=== PATIENT | male | born 1980 | race Caucasian/White ===

== ENCOUNTER 2021-05-17 18:32 | Emergency (ER) | payer BC, SELFPAY ==
[2021-05-17 18:33] VITALS: BP 150/101; PULSE 98; RESP 17; TEMP 36.6; O2SAT 97; BMI 52.1
--- NOTE | 2021-05-17 21:06 | EX.ED.DYSGE1 ---
HPI History of Present Illness Chief Complaint: General Illness Informant: patient Narrative Narrative: 40-year-old male presenting to the emergency department shortness of breath on day 9 of COVID-19. Patient states that the shortness of breath and cough is really only been over the last couple days. The patient notes no significant sputum production but occasional blood streaks with coughing fits. Not Covid vaccinated PFSH PFSH Medical History Psoriasis Home Medications dexamethasone 6 mg PO DAILY #6 tab 05/17/21 [Rx Last Taken Unknown] ondansetron 4 mg PO Q6H PRN PRN #15 tab 05/17/21 [Rx Last Taken Unknown] Allergy/AdvReac Type Severity Reaction Status Date / Time Penicillins Allergy PT UNSURE Verified 05/17/21 18:33 OF REACTION Social History (Updated 05/17/21 @ 22:[address] Ronn North DO) Smoking Status: Current every day smoker tobacco type: cigarettes and smokeless tobacco substance use type: does not use ROS ROS ED Constitutional Constitutional ED: Reports chills and fever(s); Denies weight loss Eyes Eyes: Denies change in vision or diplopia ENT ENT ED: Reports rhinorrhea; Denies ear pain or sore throat Cardiovascular Cardiovascular: Denies chest pain, orthopnea, palpitations or racing heartbeat Respiratory/Chest Respiratory/Chest: Reports cough, dyspnea and dyspnea on exertion; Denies orthopnea Gastrointestinal Gastrointestinal: Reports diarrhea and nausea; Denies abdominal pain or vomiting Genitourinary Genitourinary ED: Denies dysuria, hematuria or urinary frequency Musculoskeletal Musculoskeletal: Reports myalgias; Denies arthralgias Integumentary Denies abscess or rash Neurologic Neurologic: Reports headache(s); Denies weakness Psychiatric Psychiatric: Denies anxiety, depression, suicidal ideation or suicidal thoughts Endocrine Endocrinology: Denies polydipsia, polyphagia or polyuria Allergic/Immunologic Allergic/Immunologic ED: Denies mouth swelling, tongue swelling or urticaria EXAM Physical Exam Const Vital Signs: 05/17/21 18:33 05/17/21 21:38 05/17/21 21:39 Temperature 98 F 98 F Temperature Source Temporal Temporal Pulse Rate 98 103 H Respiratory Rate 17 30 H Respiratory Effort Short of Breath Blood Pressure 150/101 H 145/88 H Blood Pressure Mean 117 107 Pulse Ox 97 97 Oxygen Delivery Method Room Air Room Air Positive well nourished and well developed General Appearance ED: well developed HEENT Reports normocephalic, head/scalp atraumatic and moist mucous membranes Eyes PERRL and EOMs intact bilaterally Neck no lymphadenopathy, supple and no JVD Resp normal respiratory effort and clear to auscultation bilaterally Cardio regular rate, regular rhythm and no murmurs GI normal to inspection, nondistended, normoactive bowel sounds and non-tender Palpation: soft Back/Spine no CVA tenderness and normal ROM Extremity normal to inspection General Extremety ED: Negative for edema General Extremity: Negative for edema Neuro oriented x3 and CN's II-XII intact bilaterally Sensorium / Orientation: alert Motor Exam: strength 5/5 throughout Psych mental status grossly normal Mood & Affect: Negative for depressed or tearful Skin no rashes or lesions noted and no wounds MDM MDM MDM Narrative Medical decision making narrative: White count 5.3 platelet count is 160. Interpretation of the chest x-ray is multifocal areas of inflammation consistent with COVID-19 diagnosis. Patient received Toradol and Zofran as well as a dose of dexamethasone. I will prescribe dexamethasone and Zofran as well. Patient to return if worsening or concerns Lab Data Attestation: I reviewed the patient's lab results. Labs: Laboratory Results - last 24 hr 05/17/21 05/17/21 21:30 21:30 WBC 5.3 RBC 5.65 Hgb 16.9 H Hct 49.3 MCV 87.3 MCH 29.9 MCHC 34.3 RDW Std Deviation 39.2 RDW Coeff of Yusuf 12.3 Plt Count 160 MPV 10.5 Immature Gran % (Auto) 0.600 Neut % (Auto) 66.4 Lymph % (Auto) 27.1 [place] % (Auto) 5.3 Eos % (Auto) 0.2 Baso % (Auto) 0.4 Absolute Neuts (auto) 3.5 Absolute Lymphs (auto) 1.43 Nucleated RBC % 0 Sodium 134 L Potassium 5.0 Chloride 101 Carbon Dioxide 26.0 Anion Gap 7 BUN 13 Creatinine 0.96 Estim Creat Clear Calc 79.78 Est GFR (MDRD) Af Amer 112 Est GFR (MDRD) Non-Af 93 BUN/Creatinine Ratio 13.6 Glucose 91 Calcium 8.8 Total Bilirubin 0.60 AST 56 H ALT 53 Alkaline Phosphatase 107 Total Protein 7.9 Albumin 3.4 Globulin 4.5 H Albumin/Globulin Ratio 0.8 L Discharge Plan Triage Chief Complaint: General Illness ED Provider: Ronn North Dx/Rx/DC Orders Clinical Impression: COVID-19, Acute dyspnea Instructions: Coronavirus Disease 2019 (COVID-19): Caring for Yourself or Others Prescriptions: New dexamethasone 6 MG tablet 6 mg PO DAILY Qty: 6 RF: 0 ondansetron [ondansetron] 4 MG tablet 4 mg PO Q6H PRN PRN (Reason: Nausea) Qty: 15 RF: 0 Primary Care Provider: Zaire Rubalcava Referrals: Zaire Rubalcava MD [Primary Care Provider] - As Needed Disposition Disposition: Home, Self Care
[2021-05-17] MEDS: Ketorolac 30 MG/ML Syringe IV (21:37)
[2021-05-17] MEDS: Ondansetron 4 MG/2 ML Vial IV (21:37)
[2021-05-17] MEDS: dexAMETHasone 4 MG Tablet 6 MG PO (21:37)
[2021-05-17 21:38] VITALS: BP 145/88; PULSE 103; RESP 30; TEMP 36.6; O2SAT 97; O2SAT 98
--- NOTE | 2021-05-17 21:39 | RAD_ITS ---
STUDY: X-RAY CHEST REASON FOR EXAM: Male, 40 years old. covid 19 TECHNIQUE: Frontal view COMPARISON: None. FINDINGS: The lungs are expanded. Patchy infiltrates in the left lung are noted. Normal size heart. Normal mediastinum and gisele. Normal visualized pulmonary arteries. Normal visualized aortic arch and descending thoracic aorta. Normal visualized thoracic spine. Normal visualized ribs, clavicles, and shoulders. There is no demonstrated abnormality of the visualized soft tissue structures of the upper abdomen. RAD/Chest 1 View (Portable) IMPRESSION: Patchy left pulmonary infiltrates. Electronically Signed: Julián Nugent DO at 23:02 EST Tel [phone], Service support ,
[2021-05-17 21:42] LABS: Absolute Lymphocyte Count 1.43 X10^3/uL (0.83-4.51); Absolute Neutrophil Count 3.5 X10^3/uL (2.0-7.7); Basophil# 0.02 X10^3/uL; Basophil% 0.4 % (0-1); Eosinophil# 0.01 X10^3/uL; Eosinophils% 0.2 % (0-5); Hematocrit 49.3 % (40-54); Hemoglobin 16.9 g/dL (13.0-16.5); Lymphocyte # 1.43 X10^3/ul (0.83-4.51); Lymphocyte % 27.1 % (19-41); Mean Corp Hgb Conc 34.3 g/dL (32-36); Mean Corpuscular Hgb 29.9 pg (27.0-32.0); Mean Corpuscular Volume 87.3 fL (80-94); Mean Platelet Vol. 10.5 fl (6.2-12.0); Monocyte# 0.28 X10^3/uL; Monocyte% 5.3 % (0-10); NRBC Flagged by Analyzer 0 % (0-5); Neutrophil # 3.51 X10^3/uL (2.7-7.7); Neutrophil % 66.4 % (47-70); Platelet Count 160 K/mm3 (150-450); RBC Distribution Width CV 12.3 % (11.6-14.6); RBC Distribution Width SD 39.2 fl (35.1-43.9); Red Blood Count 5.65 M/mm3 (4.6-6.2); White Blood Count 5.3 K/mm3 (4.4-11.0)
[2021-05-17 22:16] LABS: ALB/GLOB Ratio 0.8 RATIO (0.9-2.4); AST(SGOT) 56 U/L (15-37); Alanine Aminotransfer ALT/SGPT 53 U/L (16-61); Albumin, Serum 3.4 g/dL (3.2-5.0); Alkaline Phosphatase 107 U/L (45-117); Anion Gap 7 (5-15); BUN 13 mg/dL (7-18); BUN/Creat Ratio 13.6 RATIO (10-20); Calcium,Total 8.8 mg/dL (8.5-10.1); Chloride 101 mmol/L (98-107); Creatinine, Serum 0.96 mg/dL (0.70-1.30); EST Glomerular Filtration Rate 93 mL/min (>60); Est Glom Filt Rate - Afr Amer 112 mL/min (>60); Estimated Creatinine Clearance 79.78 ml/min; Globulin 4.5 g/dL (2.2-4.2); Glucose 91 mg/dL (74-106); Protein, Total 7.9 g/dL (6.4-8.2); Sodium Level 134 mmol/L (136-145)
[2021-05-17] MEDS: INHALER, ASSIST DEVICES 1 EACH SPACER INHALATION (22:38)
== END 2021-05-17 22:38 | disposition home or self-care (01) ==
PROVIDERS: Emergency Provider Emergency Medicine; PCP Family Medicine
DX: U07.1 COVID-19 (principal); L40.9 Psoriasis, unspecified; F17.210 Nicotine dependence, cigarettes, uncomplicated
CPT/HCPCS: 71045; 80053; 85025; 94640; 96374; 96375; 99283; A4216; J2405

== ENCOUNTER 2022-07-31 13:41 | Emergency (ER) | payer BC, SELFPAY ==
[2022-07-31 13:41] VITALS: BP 158/107; PULSE 95; RESP 18; TEMP 36.2; O2SAT 98; BMI 50.8
--- NOTE | 2022-07-31 14:01 | EDS_ITS ---
HPI <WALESKA Mauro - Last Filed: 07/31/22 15:39> History of Present Illness Chief Complaint: Laceration Narrative Narrative: 41-year-old male was chopping wood when a fist-sized piece of wood flew up and struck his nose. He has a laceration and bleeding is controlled. He went to urgent care but they sent him here for x-rays to rule out an underlying fracture. His tetanus is up-to-date. He has no headache, visual changes, nausea or vomiting. No blood thinners. PFSH <WALESKA Mauro - Last Filed: 07/31/22 15:39> [facility] Medical History Psoriasis Home Medications dexamethasone 6 mg tablet 6 mg PO DAILY #6 tabs 05/17/21 [Rx Last Taken Unknown] ondansetron 4 mg disintegrating tablet 4 mg PO Q6H PRN PRN Nausea #15 tabs 05/17/21 [Rx Last Taken Unknown] clindamycin HCl 150 mg capsule 450 mg PO TID 5 days #45 CAPSULES 07/31/22 [Rx Last Taken Unknown] hydrocodone-acetaminophen 5-325mg 5mg-325mg 1 tab PO Q6H PRN PRN Pain 3 days #10 TABLETS 07/31/22 [Rx Last Taken Unknown] Allergy/AdvReac Type Severity Reaction Status Date / Time Penicillins Allergy PT UNSURE Verified 05/17/21 18:33 OF REACTION Social History (Updated 05/17/21 @ 22:[address] Ronn Norht DO) Smoking Status: Current every day smoker tobacco type: cigarettes and smokeless tobacco substance use type: does not use ROS <WALESKA Mauro - Last Filed: 07/31/22 15:39> ROS ED ROS Narrative Constitutional: Negative for fever, chills, malaise. Eyes: Negative for visual change. CVS: Negative for palpitations, chest pain. Respiratory: Negative for shortness of breath. GI: Negative for nausea, vomiting. Neuro: Negative for headache, motor/sensory dysfunction. Skin: Positive for laceration. Heme: Negative for easy bruising, bleeding, lymphadenopathy. EXAM <WALESKA Mauro - Last Filed: 07/31/22 15:39> Physical Exam Narrative Exam Narrative: CONST: Patient sitting in no acute distress. EYES: Normal inspection. PERRLA, EOMI. ENT: 3 cm jagged linear laceration extending horizontally across the mid bridge of his nose with surrounding soft tissue swelling. No nasal septal hematoma, no raccoon eyes or tariq sign, no hemotympanum or CSF otorrhea or rhinorrhea. NECK: Normal inspection. RESP: No respiratory distress, CTAB. CVS: Regular rate and rhythm, no murmur, no gallop. SKIN: 3 cm nasal bridge laceration. EXTREMITIES: Normal appearance, no pedal edema. NEURO: Oriented x4. PSYCH: Normal affect. Const Vital Signs: 07/31/22 13:41 Temperature 97.2 F L Temperature Source Temporal Pulse Rate 95 Respiratory Rate 18 Blood Pressure 158/107 H Blood Pressure Mean 124 Pulse Ox 98 Oxygen Delivery Method Room Air <Dr. Rodrick Mcginnis DO - Last Filed: 07/31/22 16:39> Physical Exam Const Vital Signs: 07/31/22 13:41 Temperature 97.2 F L Temperature Source Temporal Pulse Rate 95 Respiratory Rate 18 Blood Pressure 158/107 H Blood Pressure Mean 124 Pulse Ox 98 Oxygen Delivery Method Room Air MDM <WALESKA Mauro - Last Filed: 07/31/22 15:39> [facility] Narrative Medical decision making narrative: Patient had blunt trauma to his nose from a piece of wood and presents with a laceration. There is a 3 cm laceration over the bridge of the nose. No nasal septal hematoma or other signs of basilar skull fracture. He has no other facial bony tenderness so I ordered a nasal bone x-ray and do not think a CT scan is indicated. He has a nondisplaced right nasal bone fracture. Laceration was cleansed and closed with 4 sutures?see procedure note below. Patient will be started on clindamycin for open nasal fracture, Amberg for pain, and given ENT follow-up. He was discharged in stable condition. Procedure note: Let gel was applied to the bridge of his nose for 30 minutes with good anesthetization. The wound was thoroughly irrigated with sterile saline. It was prepped and draped in a sterile condition and closed with 4 simple erupted sutures of 6-0 Ethilon. There is good approximation. Patient tolerated procedure well without complications. Tetanus is already up-to-date. I have personally performed a face to face assessment of the patient and have reviewed the HERNANDEZ Note. I performed a substantive portion of the visit including all aspects of the following. My emanuel findings include: History is [patient presents the emergency department after sustaining an injury to his nose. Patient states that he was using a chainsaw to cut a piece of wood when the piece caught the chainsaw which threw the piece of wood up against his face and struck him in the nose. Patient sustained laceration. He is up-to-date on tetanus. He denies vision changes. He denies dental injury. Patient went to urgent care and was referred to the emergency department. Patient had a small amount of blood from the right side of the nose initially.] Exam is [HEENT-PERRLA, EOMI. Cranial nerves II through XII grossly intact. TMs clear. Mucous membranes moist. No adenopathy. Patient has a 3 cm laceration over the bridge of the nose. Patient has some tenderness palpation over the bridge of the nose. No septal hematoma. Cardiovascular-regular rate and rhythm without murmur or ectopy Lungs-clear to auscultation, chest wall stable without crepitus or subcu emphysema Abdomen-normoactive bowel sounds, soft, nontender, no rebound or rigidity, no peritoneal signs. Extremities-intact ?4, normal range of motion, normal pulses, atraumatic] Medical Decison Making [ ] Other additions or changes: [None] Radiography Diagnostic Testing: Clinical Impression(s) from Imaging Studies Nasal Bones X-Ray 07/31/22 14:35 IMPRESSION: Nondisplaced right nasal bone fracture Electronically Signed: Idalia Sanches MD at 14:48 EST , <Dr. Rodrick Mcginnis, DO - Last Filed: 07/31/22 16:39> [facility] Narrative Medical decision making narrative: Patient had blunt trauma to his nose from a piece of wood and presents with a laceration. There is a 3 cm laceration over the bridge of the nose. No nasal septal hematoma or other signs of basilar skull fracture. He has no other facial bony tenderness so I ordered a nasal bone x-ray and do not think a CT scan is indicated. He has a nondisplaced right nasal bone fracture. Laceration was cleansed and closed with 4 sutures?see procedure note below. Patient will be started on clindamycin for open nasal fracture, Amberg for pain, and given ENT follow-up. He was discharged in stable condition. Procedure note: Let gel was applied to the bridge of his nose for 30 minutes with good anesthetization. The wound was thoroughly irrigated with sterile saline. It was prepped and draped in a sterile condition and closed with 4 simple erupted sutures of 6-0 Ethilon. There is good approximation. Patient tolerated procedure well without complications. Tetanus is already up-to-date. I have personally performed a face to face assessment of the patient and have reviewed the HERNANDEZ Note. I performed a substantive portion of the visit including all aspects of the following. My emanuel findings include: History is [patient presents the emergency department after sustaining an injury to his nose. Patient states that he was using a chainsaw to cut a piece of wood when the piece caught the chainsaw which threw the piece of wood up against his face and struck him in the nose. Patient sustained laceration. He is up-to-date on tetanus. He denies vision changes. He denies dental injury. Patient went to urgent care and was referred to the emergency department. Patient had a small amount of blood from the right side of the nose initially.] Exam is [HEENT-PERRLA, EOMI. Cranial nerves II through XII grossly intact. TMs clear. Mucous membranes moist. No adenopathy. Patient has a 3 cm laceration over the bridge of the nose. Patient has some tenderness palpation over the bridge of the nose. No septal hematoma. Cardiovascular-regular rate and rhythm without murmur or ectopy Lungs-clear to auscultation, chest wall stable without crepitus or subcu emphysema Abdomen-normoactive bowel sounds, soft, nontender, no rebound or rigidity, no peritoneal signs. Extremities-intact ?4, normal range of motion, normal pulses, atraumatic] Medical Decison Making [patient with nasal bone fracture technically considered open given the laceration over the nose. We applied let solution to the nose. Patient had suture repair by physician rehabilitation assistant. Please see her note. Patient will be started on clindamycin and referred to ENT for follow-up with suture removal in 5 days.] Other additions or changes: [None] Radiography Diagnostic Testing: Clinical Impression(s) from Imaging Studies Nasal Bones X-Ray 07/31/22 14:35 IMPRESSION: Nondisplaced right nasal bone fracture Electronically Signed: Idalia Sanches MD at 14:48 EST Reading Location ID and State: [facility] / [place] Tel , Service support , Three-view x-rays of the nasal bone obtained interpreted by myself as fracture of nasal bone nondisplaced. Radiology in agreement that patient nondisplaced right nasal bone fracture. Discharge Plan Triage Chief Complaint: Laceration ED Midlevel Provider: Flower Guzman ED Provider: Rodrick Mcginnis Dx/Rx/DC Orders Clinical Impression: Open nondisplaced fracture of nasal bone, Laceration of nose Instructions: ED Nose Fracture, with X-Ray Prescriptions: New clindamycin HCl 150 mg capsule 450 mg PO TID 5 Days Qty: 45 0RF hydrocodone-acetaminophen 5-325 mg tablet 1 tab PO Q6H PRN PRN (Reason: Pain) 3 Days Qty: 10 0RF No Action dexamethasone 6 MG tablet 6 mg PO DAILY Qty: 6 0RF ondansetron [ondansetron] 4 MG tablet 4 mg PO Q6H PRN PRN (Reason: Nausea) Qty: 15 0RF Primary Care Provider: Zaire Rubalcava Referrals: Cam Mora MD [Med Staff - Active Staff] - (Call for an appointment to be seen this week, sutures need removed in 4-5 days ) Zaire Rubalcava MD [Primary Care Provider] - Activity Restrictions/Additional Instructions: Call ENT for an appointment this week. Stitches need removed in 4-5 days. You can shower as normal and keep the area clean and covered with bacitracin. Disposition Disposition: Home, Self Care Discharge Date/Time: 07/31/22 15:42
--- NOTE | 2022-07-31 14:35 | RAD_ITS ---
HISTORY: nasal trauma. TECHNIQUE: XR Nasal Bones Min 3 Views. COMPARISON: None. FINDINGS: OSSEOUS STRUCTURES: Small cortical irregularity of the right nasal bone. SOFT TISSUES: No significant air fluid levels in the paranasal sinuses. RAD/Nasal Bones min 3 Views IMPRESSION: Nondisplaced right nasal bone fracture Electronically Signed: Idalia Sanches MD at 14:48 EST ,
[2022-07-31] MEDS: Lidocaine/Epi/Tetracaine 50 ML 1 APPLIC TOPICAL (14:44)
[2022-07-31] MEDS: Clindamycin HCl 150 MG Capsule 450 MG PO (15:10)
== END 2022-07-31 15:42 | disposition home or self-care (01) ==
PROVIDERS: Emergency Provider Emergency Medicine; PCP Family Medicine; Visit Provider Emergency Medicine
DX: S02.2XXB Fracture of nasal bones, initial encounter for open fracture (principal); W20.8XXA Other cause of strike by thrown, projected or falling object, initial encounter; F17.210 Nicotine dependence, cigarettes, uncomplicated; Z79.899 Other long term (current) drug therapy; F17.220 Nicotine dependence, chewing tobacco, uncomplicated
CPT/HCPCS: 12013; 70160; 99283